=== PATIENT | female | born 1985 | race Caucasian/White ===

== ENCOUNTER 2020-02-29 08:09 | Outpatient (CLI) | payer MEDICARE, SELFPAY ==
[2020-02-29 09:33] LABS: Alanine Aminotransferase 19 U/L (14-59); Albumin Level 3.7 g/dL (3.4-5.0); Alkaline Phosphatase 73 U/L (46-116); Anion Gap 14 mmol/L (8-16); Aspartate Amino Transferase 12 U/L (15-37); Bilirubin,Total 0.2 mg/dL (0.00-1.00); Blood Urea Nitrogen 17 mg/dL (7-18); Calcium 8.9 mg/dL (8.5-10.1); Carbon Dioxide 22 mmol/L (21-32); Chloride 104 mmol/L (98-108); Cholesterol 204 mg/dL (0-200); Estimated Glomerular Filt Rate > 60; Glucose 88 mg/dL (70-99); HDL Direct 48 mg/dL (40-60); LDL Cholesterol Calculated 126 mg/dL (<130); Osmolality Calculated 290 mOsm/kg (285-295); Potassium 4.1 mmol/L (3.5-5.1); Sodium 140 mmol/L (136-145); Total Protein 6.8 g/dL (6.4-8.2); Triglycerides 150 mg/dL (0-150)
== END 2020-02-29 08:10 | disposition home or self-care (01) ==
LOC: CHSLAB 08:11
DX: I10 Essential (primary) hypertension (principal)
CPT/HCPCS: 36415; 80053; 80061

== ENCOUNTER 2023-06-23 14:26 | Emergency (ER) | payer BC, MEDICARE, SELFPAY ==
--- NOTE | ~2023-06-23 | XR_ITS ---
EXAMINATION: XR chest 1V portable INDICATION: Cough TECHNIQUE: Portable AP chest at 1451 hours COMPARISON: 04/12/2014 FINDINGS: The lungs are free of acute opacities. No pleural effusion or pneumothorax. The cardiomedia stinal silhouette is normal. IMPRESSION: 1. No acute cardiopulmonary abnormality. Reviewed, dictated and finalized at location [facility]. [facility]
[2023-06-23 14:26] VITALS: BP 124/79; PULSE 107; RESP 18; TEMP 36.4; O2SAT 99
--- NOTE | 2023-06-23 14:39 | ED.URI ---
HPI - URI/Sore Throat General Chief Complaint: Upper Respiratory Infection Stated Complaint: URI Time Seen by Provider: 06/23/23 14:36 Source: patient Mode of arrival: ambulatory Limitations: no limitations History of Present Illness HPI Narrative: Patient is a 37-year-old female with cough and congestion for 5 days. MD elicited complaint: cough, sore throat, rhinorrhea and nasal congestion Onset (ago): day(s) (5) Consistency: constant and progressively worsening Severity: moderate Pain scale (0-10): 5 Description of mucous: clear and watery Able to tolerate fluids by mouth: Yes Exacerbating factors: nothing Relieving factors: nothing Context: sick contacts (her son) Associated symptoms: fever, chills, myalgias, rhinorrhea, nasal congestion, sore throat, cough and shortness of breath Treatments prior to arrival: acetaminophen, ibuprofen and cold medicine Related Data Home Medications Medication Instructions Recorded Confirmed [id number] 250 2 tablet PO Q4-6H PRN Headache 03/21/19 06/23/23 mg-250 mg-65 mg tablet (Excedrin Migraine) baclofen 10 mg tablet 10 mg PO BID 03/21/19 06/23/23 lisinopril 40 mg tablet 40 mg PO DAILY 03/21/19 06/23/23 melatonin 10 mg tablet 10 mg PO HS 03/21/19 06/23/23 meloxicam 15 mg tablet 15 mg PO DAILY 03/21/19 06/23/23 tizanidine 6 mg capsule 6 mg PO TID PRN Pain 03/21/19 06/23/23 topiramate 50 mg tablet 75 mg PO BID 03/21/19 06/23/23 tramadol 50 mg tablet 50 mg PO Q6-8H PRN Pain 03/21/19 06/23/23 duloxetine 60 mg capsule,delayed 60 mg PO DAILY 06/23/23 06/23/23 release furosemide 20 mg tablet 20 mg PO DAILY 06/23/23 06/23/23 mirtazapine 7.5 mg tablet 7.5 mg PO DAILY 06/23/23 06/23/23 promethazine 25 mg tablet 25 mg PO TID PRN Nausea 06/23/23 06/23/23 quetiapine 50 mg tablet 50 mg PO HS 06/23/23 06/23/23 Allergies Allergy/AdvReac Type Severity Reaction Status Date / Time No Known Allergies Allergy Verified 06/23/23 14:33 Review of Systems Review of Systems: All systems reviewed & are unremarkable except as noted in HPI and below Constitutional: Constitutional: Reports no additional constitutional complaints Eyes: Eyes: Reports no additional eye complaints ENT: Reports system reviewed and no additional complaints, except as documented Cardiovascular: Cardiovascular: Reports no additional cardiovascular complaints Respiratory: Respiratory: Reports no additional respiratory complaints Gastrointestinal: Gastrointestinal: Reports no additional gastrointestinal complaints Genitourinary: Genitourinary: Reports no additional female genitourinary complaints Musculoskeletal: Musculoskeletal: Reports no additional musculoskeletal complaints Integumentary/Breasts: Skin/Breast: Reports system reviewed and no additional complaints, except as docu Neurologic: Reports system reviewed and no additional complaints, except as documented Psychiatric: Psychiatric: Reports no additional psychiatric complaints Endocrine: Endocrine: Reports no additional endocrine complaints Hematologic/Lymphatic: Hematologic/Lymphatic: Reports no additional hematologic/lymphatic complaints Allergic/Immunologic: Allergic/Immunologic: Reports no additional allergic/immunologic complaints PMFSH Past Medical History Medical History Hypertension Migraine headache Surgical History Surgical History H/O hysterectomy for benign disease Hx of cholecystectomy Family History Family History Father , medical history unknown No problems noted. Mother Heart disease Social History Social History Smoking packs per day: 0.5 Smoking cigarettes per day: 10.0 Smoking status: Current every day smoker Tobacco type: cigarettes Alcohol use details: occa
[2023-06-23 15:10] LABS: SARS-CoV-2 RNA PCR Negative (Negative)
[2023-06-23 15:23] LABS: Influenza A QL RT-PCR Negative (Negative); Influenza B QL RT-PCR Positive (Negative); RSV RNA, RT-PCR Negative (Negative)
[2023-06-23 15:50] VITALS: BP 122/76; PULSE 102; RESP 20; O2SAT 99
== END 2023-06-23 15:50 | disposition home or self-care (01) ==
PROVIDERS: Emergency Provider Emergency Medicine; PCP Family Medicine
DX: J10.1 Influenza due to other identified influenza virus with other respiratory manifestations (principal); H60.90 Unspecified otitis externa, unspecified ear; J40 Bronchitis, not specified as acute or chronic; B34.9 Viral infection, unspecified; I10 Essential (primary) hypertension; F17.210 Nicotine dependence, cigarettes, uncomplicated; Z79.82 Long term (current) use of aspirin; Z79.891 Long term (current) use of opiate analgesic; Z20.822 Contact with and (suspected) exposure to COVID-19; Z79.899 Other long term (current) drug therapy
CPT/HCPCS: 71045; 87637; 99283